=== PATIENT | male | born 1945 | race Caucasian/White ===

== ENCOUNTER 2024-11-08 08:46 | Outpatient (AMB) | payer BC, SELFPAY ==
--- NOTE | 2024-11-08 09:27 | PD.ORTHCLVIS ---
Vital signs 11/08/24 09:28 Height 1.85 m Height Method Stated Weight 90.747 kg Weight Measurement Method Standing Scale BMI 26.5 BP 127/81 Blood Pressure Source Automatic Cuff Blood Pressure Location Left Upper Arm Position Sitting Respiration 18 Pulse 65 Pulse Source Monitor Temp 98.2 F Temp Source Temporal Artery Scan Pulse Oximetry (%) 98 Oxygen Delivery Method Room Air Med/Allergies Allergies & Medications Allergies NKA* Allergy (Uncoded 11/08/24 09:28) Medication Reconciliation atorvastatin 20 mg tablet 20 mg PO QDAY 05/07/24 [History Confirmed 11/08/24] celecoxib 200 mg capsule 200 mg PO QDAY 05/07/24 [History Confirmed 11/08/24] tadalafil 10 mg tablet 10 mg PO QDAY PRN Erectile Dysfunction 05/07/24 [History Confirmed 11/08/24] tramadol 50 mg tablet 50 mg PO Q8H PRN Pain 05/07/24 [History Confirmed 11/08/24] lixqzcqoep-wfzuzexsyzrph-xvlmpaqx 50 mg-325 mg-40 mg capsule 1 cap PO Q6H PRN Migraine Headache 06/11/24 [History Confirmed 11/08/24] cholecalciferol (vitamin D3) 25 mcg (1,000 unit) capsule (Vitamin D3) 25 mcg PO QDAY 06/11/24 [History Confirmed 11/08/24] diclofenac sodium 1 % topical gel (Voltaren Arthritis Pain) 2 g topical QID PRN Pain 06/11/24 [History Confirmed 11/08/24] sumatriptan succinate 50 mg tablet 0 mg PO .COMPLEX 06/11/24 [History Confirmed 11/08/24] timolol maleate 0.5 % once daily eye drops 1 drp ophthalmic (eye) QDAY 06/11/24 [History Confirmed 11/08/24] acetaminophen 500 mg tablet (Acetaminophen Extra Strength) 1,000 mg (2 x 500 mg) PO Q6H PRN pain #90 tabs 06/12/24 [Rx Confirmed 11/08/24] aspirin 81 mg tablet,delayed release 81 mg PO BID #60 tabs 06/12/24 [Rx Confirmed 11/08/24] doxycycline hyclate 100 mg tablet 100 mg PO BID #14 tabs 06/12/24 [Rx Confirmed 11/08/24] gabapentin 300 mg capsule 300 mg PO .qhs #30 caps 06/12/24 [Rx Confirmed 11/08/24] oxycodone 5 mg tablet 5 mg PO Q6H PRN pain #28 tabs 06/12/24 [Rx Confirmed 11/08/24] sennosides 8.6 mg-docusate sodium 50 mg tablet (Senna-S) 1 tab-cap PO QDAY #30 tabs 06/12/24 [Rx Confirmed 11/08/24] tramadol 50 mg tablet 50 mg PO Q6H PRN pain #28 tabs 06/25/24 [Rx Confirmed 11/08/24] cyclobenzaprine 5 mg tablet 5 mg PO QHS PRN muscle spasm #30 tabs 06/28/24 [Rx Confirmed 11/08/24] Exam Exam Patient is in no acute distress and is cooperative with the examination today. Breathing is nonlabored. Patient has a normal mood and affect. Bilateral extremities were evaluated and demonstrates sensation intact to light touch. Palpable pedal pulses are present. No significant edema is present. Bilateral hips were examined. The patient has no pain with log roll of the hips. Internal rotation to 30 degrees and external rotation to 30 degrees is painless. Negative FADIR. Left knee incision is clean dry and intact The right knee was also examined. Right knee incision is clean dry and intact. He has very little swelling. . Range of motion is 0 to 105 degrees Assessment and Plan Problem List (1) History of total right knee replacement: Status: Acute Plan: Patient is doing well status post right total knee replacement. He is doing well and his x-rays look good. We will see him in approximately6 months He is doing well and I will see him in 6 months for routine follow-up Advanced Care Planning Discussion Advance care planning discussed with:: patient Office Procedures GNS Level of Care Nursing/Assessment Patient Status: Established Patient Nursing Assessment/Reassesment: Medication Reconciliation, Update PMH in EMR and Vital Signs Coordination of Care: Complex Care and Chronic Disease 1-5, Education Complex Pt/Fam, Consent,records obtained, informed consent, Results/Orders obtained and Staff clarify orders Established Patient Charge Established Patient Point Assignment: 95 Established Patient Point Charge: EP Level 3 (80-115) MA Intake Visit Data Collection New Patient or Established: Established Patient (seen at [facility] within 3 years) Reason for Visit:: 3 MTH F/U R TKA Seen by Clinical Staff ONLY (RN/MA): No PCP or OBGYN visit in last 3 months: Yes Hx Now: No Do You Feel Safe at Home: Yes Authorities Contacted: N/A Questionairres Past Medical History Past Medical History Have you ever been diagnosed with any of the following: Neurological Problems Seizures: No Cardiology Problems Hypercholesterolemia: Yes Congestive Heart Failure: No Respiratory Problems Chronic Obstructive Pulmonary Disease (COPD): No Smoking: No Smoking Cessation Counseling: No Smoking Exposure: No Tobacco Use: No Clubbing: No Stomache/Intestinal Problems Hepatitis: No Genital/Urinary Problems Renal Disease: No Benign Prostatic Hyperplasia: No Musculoskeletal Problems Arthritis: Yes Head,Eye,Nose,Throat Problems Cataracts: Yes (Bilateral) Glaucoma: Yes Endocrine Problems Diabetes Mellitus Type 1: No Diabetes Mellitus Type 2: No Other Problems Hospitalization: Yes (surgery) Shingles: Yes Falls: No Blood Transfusions: No Blood Transfusion Reaction: No Anesthesia Reactions: No Chicken Pox: Yes Measles: Yes Cancer: No Surgical History Total Knee Replacement: Yes Subjective Visit Visit for: follow up visit and knee (RIGHT TKA) Immunization / Flu Flu Vaccine in the Last 12 Months: No Flu Vaccine Exclusion Criteria: No Exclusion Criteria History of Present Illness Chief complaint: Right total knee replacement General this pleasant 78-year-old male with a right total knee replacement 5 months ago. He is doing well and has minimal pain. Pain Pain level (0-10): 2 Pain duration: COMES AND GOES Pain quality: aching Associated signs & symptoms: none Ambulatory data Ambulatory device: none Treatments Improvement with previous injections: No Improvement with PT: No Improvement with NSAIDS: no Review of Systems Review of Systems: All systems negative unless otherwise noted in HPI.
[2024-11-08 09:28] VITALS: BP 127/81; PULSE 65; RESP 18; TEMP 36.8; O2SAT 98; BMI 26.5
== END 2024-11-08 09:32 | disposition home or self-care (01) ==
LOC: HODSRG 08:46
PROVIDERS: PCP Family Medicine; Referring Provider Family Medicine; Supervising Provider Orthopaedic Surgery Adult Reconstructive Orthopaedic Surgery; Visit Provider Orthopaedic Surgery Adult Reconstructive Orthopaedic Surgery
DX: Z96.651 Presence of right artificial knee joint (principal); E78.00 Pure hypercholesterolemia, unspecified
CPT/HCPCS: 99213; G0463

== ENCOUNTER → 2025-04-01 | Outpatient (CLI) | payer BC, SELFPAY ==
--- NOTE | 2025-04-01 | XR_ITS ---
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
== END | disposition home or self-care (01) ==
LOC: CDIM 11:32
PROVIDERS: PCP Internal Medicine; Referring Provider Orthopaedic Surgery Adult Reconstructive Orthopaedic Surgery; Visit Provider Orthopaedic Surgery Adult Reconstructive Orthopaedic Surgery
DX: M17.11 Unilateral primary osteoarthritis, right knee (principal); Z96.651 Presence of right artificial knee joint
CPT/HCPCS: 73564

== ENCOUNTER 2025-04-08 09:12 | Outpatient (AMB) | payer BC, SELFPAY ==
[2025-04-08 09:49] VITALS: BP 131/87; PULSE 65; RESP 18; TEMP 36.5; O2SAT 97; BMI 27.1
--- NOTE | 2025-04-08 09:49 | ORTHONT_ITS ---
Vital signs 04/08/25 09:49 Height 1.85 m Height Method Stated Weight 92.731 kg Weight Measurement Method Standing Scale BMI 27.1 BP 131/87 H Blood Pressure Source Automatic Cuff Blood Pressure Location Left Upper Arm Position Sitting Respiration 18 Pulse 65 Pulse Source Monitor Temp 97.7 F Temp Source Temporal Artery Scan Pulse Oximetry (%) 97 Oxygen Delivery Method Room Air Med/Allergies Allergies & Medications Allergies NKA* Allergy (Uncoded 04/08/25 09:49) Medication Reconciliation atorvastatin 20 mg tablet 20 mg PO QDAY 05/07/24 [History Confirmed 11/08/24] celecoxib 200 mg capsule 200 mg PO QDAY 05/07/24 [History Confirmed 11/08/24] tadalafil 10 mg tablet 10 mg PO QDAY PRN Erectile Dysfunction 05/07/24 [History Confirmed 11/08/24] tramadol 50 mg tablet 50 mg PO Q8H PRN Pain 05/07/24 [History Confirmed 11/08/24] qvilinmwct-phnquexefbqnv-sjjcfqpj 50 mg-325 mg-40 mg capsule 1 cap PO Q6H PRN Migraine Headache 06/11/24 [History Confirmed 11/08/24] cholecalciferol (vitamin D3) 25 mcg (1,000 unit) capsule (Vitamin D3) 25 mcg PO QDAY 06/11/24 [History Confirmed 11/08/24] diclofenac sodium 1 % topical gel (Voltaren Arthritis Pain) 2 g topical QID PRN Pain 06/11/24 [History Confirmed 11/08/24] sumatriptan succinate 50 mg tablet 0 mg PO .COMPLEX 06/11/24 [History Confirmed 11/08/24] timolol maleate 0.5 % once daily eye drops 1 drp ophthalmic (eye) QDAY 06/11/24 [History Confirmed 11/08/24] acetaminophen 500 mg tablet (Acetaminophen Extra Strength) 1,000 mg (2 x 500 mg) PO Q6H PRN pain #90 tabs 06/12/24 [Rx Confirmed 11/08/24] aspirin 81 mg tablet,delayed release 81 mg PO BID #60 tabs 06/12/24 [Rx Confirmed 11/08/24] doxycycline hyclate 100 mg tablet 100 mg PO BID #14 tabs 06/12/24 [Rx Confirmed 11/08/24] gabapentin 300 mg capsule 300 mg PO .qhs #30 caps 06/12/24 [Rx Confirmed 11/08/24] oxycodone 5 mg tablet 5 mg PO Q6H PRN pain #28 tabs 06/12/24 [Rx Confirmed 11/08/24] sennosides 8.6 mg-docusate sodium 50 mg tablet (Senna-S) 1 tab-cap PO QDAY #30 tabs 06/12/24 [Rx Confirmed 11/08/24] tramadol 50 mg tablet 50 mg PO Q6H PRN pain #28 tabs 06/25/24 [Rx Confirmed 11/08/24] cyclobenzaprine 5 mg tablet 5 mg PO QHS PRN muscle spasm #30 tabs 06/28/24 [Rx Confirmed 11/08/24] methylprednisolone 4 mg tablets in a dose pack (Medrol (Jaden)) See Rx Instructions PO PER PKG DIR #21 tabs 04/08/25 [Rx] pregabalin 75 mg capsule 75 mg PO BID #60 caps 04/08/25 [Rx] Exam Exam Patient is in no acute distress and is cooperative with the examination today. Breathing is nonlabored. Patient has a normal mood and affect. Bilateral extremities were evaluated and demonstrates sensation intact to light touch. Palpable pedal pulses are present. No significant edema is present. Bilateral hips were examined. The patient has no pain with log roll of the hips. Internal rotation to 30 degrees and external rotation to 30 degrees is painless. Negative FADIR. Left knee incision is clean dry and intact The right knee was also examined. Right knee incision is clean dry and intact. He has very little swelling. . Range of motion is 0 to 105 degrees X-rays from 04/01/2025 demonstrates a total knee replacement good alignment. There is no evidence of loosening Assessment and Plan Problem List (1) History of total right knee replacement: Status: Acute Plan: Patient is doing well status post right total knee replacement. He is doing well and his x-rays look good. We will see him in approximately 2 years. He is having sciatica symptoms with numbness and tingling radiate down his leg. We sent him a Medrol Dosepak for this. He is going to see his spine surgeon. Advanced Care Planning Discussion Advance care planning discussed with:: patient Office Procedures GNS Level of Care Nursing/Assessment Patient Status: Established Patient Nursing Assessment/Reassesment: Medication Reconciliation, Update PMH in EMR and Vital Signs Coordination of Care: Complex Care and Chronic Disease 1-5, Education Complex Pt/Fam, Consent,records obtained, informed consent, Results/Orders obtained and Staff clarify orders Established Patient Charge Established Patient Point Assignment: 95 Established Patient Point Charge: EP Level 3 (80-115) MA Intake Visit Data Collection New Patient or Established: Established Patient (seen at [facility] within 3 years) Reason for Visit:: R TKA 6 MTHS Seen by Clinical Staff ONLY (RN/MA): No PCP or OBGYN visit in last 3 months: Yes Hx Now: No Do You Feel Safe at Home: Yes Authorities Contacted: N/A Questionairres Past Medical History Past Medical History Have you ever been diagnosed with any of the following: Neurological Problems Seizures: No Cardiology Problems Hypercholesterolemia: Yes Congestive Heart Failure: No Respiratory Problems Chronic Obstructive Pulmonary Disease (COPD): No Smoking: No Smoking Cessation Counseling: No Smoking Exposure: No Tobacco Use: No Clubbing: No Stomache/Intestinal Problems Hepatitis: No Genital/Urinary Problems Renal Disease: No Benign Prostatic Hyperplasia: No Musculoskeletal Problems Arthritis: Yes Head,Eye,Nose,Throat Problems Cataracts: Yes (Bilateral) Glaucoma: Yes Endocrine Problems Diabetes Mellitus Type 1: No Diabetes Mellitus Type 2: No Other Problems Hospitalization: Yes (surgery) Shingles: Yes Falls: No Blood Transfusions: No Blood Transfusion Reaction: No Anesthesia Reactions: No Chicken Pox: Yes Measles: Yes Cancer: No Surgical History Total Knee Replacement: Yes Subjective Visit Visit for: follow up visit and knee Immunization / Flu Flu Vaccine in the Last 12 Months: No Flu Vaccine Exclusion Criteria: No Exclusion Criteria History of Present Illness Chief complaint: Right total knee replacement General this pleasant 78-year-old male with a right total knee replacement 11 months ago. He is doing well and has minimal pain. Pain Pain level (0-10): 10 Pain duration: ALL DAY Pain quality: aching Associated signs & symptoms: numbness Ambulatory data Ambulatory device: none Treatments Improvement with previous injections: No Improvement with PT: No Improvement with NSAIDS: no Review of Systems Review of Systems: All systems negative unless otherwise noted in HPI.
== END 2025-04-08 10:03 | disposition home or self-care (01) ==
LOC: HODSRG 09:12
PROVIDERS: PCP Family Medicine; Referring Provider Family Medicine; Supervising Provider Orthopaedic Surgery Adult Reconstructive Orthopaedic Surgery; Visit Provider Orthopaedic Surgery Adult Reconstructive Orthopaedic Surgery
DX: Z96.651 Presence of right artificial knee joint (principal); R20.0 Anesthesia of skin; R20.2 Paresthesia of skin; E78.00 Pure hypercholesterolemia, unspecified
CPT/HCPCS: 99213; G0463